=== PATIENT | female | born 1950 | race Caucasian/White ===

== ENCOUNTER 2021-05-27 00:44 | Inpatient (IN) | payer MEDICARE, OTHER ==
[2021-05-27] VITALS (7 sets, daily range): BP systolic 100–130; BP diastolic 49–85
[~2021-05-27] VITALS: Ht 157.5 cm; Wt 76.0 kg
[2021-05-27] MEDS ORDERED: POLY2500 PO (01:22)
[2021-05-27] MEDS ORDERED: ESCITALOPRAM OX20 MG PO (01:22)
[2021-05-27] MEDS ORDERED: MAGN400T48 PO (01:22)
[2021-05-27] MEDS ORDERED: CARV12.511 PO (01:22)
[2021-05-27] MEDS ORDERED: MELA5TAB20 PO (01:22)
[2021-05-27] MEDS ORDERED: DILT180C29 PO (01:22)
[2021-05-27] MEDS ORDERED: ATOR40TA59 PO (01:22)
[2021-05-27] MEDS ORDERED: LEVO75TA5 PO (01:22)
[2021-05-27] MEDS ORDERED: MULT-245 PO (01:22)
[2021-05-27] MEDS ORDERED: BISA-42 PO (01:22)
[2021-05-27] MEDS ORDERED: DIVA-51 PO (01:22)
[2021-05-27] MEDS ORDERED: LORA0.5T96 PO (01:22)
[2021-05-27] MEDS ORDERED: ONDANSETRON PF 4 MG/2 ML VIAL. IVP PRN (01:45)
[2021-05-27] MEDS ORDERED: APIX5TAB PO (02:13)
[2021-05-27] MEDS: IV NORMAL SALINE 1000ML BAG 1,000 ML IV SCH ×3 (04:06→20:40)
[2021-05-27 06:47] LABS: ALBUMIN/GLOBULIN RATIO 0.9 (1.0-1.7); CALCIUM 8.6 mg/dL (8.5-10.1); CREATININE 1.3 mg/dL (0.6-1.0); GFR 40.3; POTASSIUM 4.3 mmol/L (3.5-5.1); TOTAL BILIRUBIN 0.8 mg/dL (0.2-1.0); TOTAL PROTEIN 6.4 g/dL (6.4-8.2)
[2021-05-27 06:58] LABS: BASO % 0 % (0-3); EOS % 0 % (0-3); HEMATOCRIT 37.5 % (36.0-47.0); LYMPH # 1.1 x10^3/uL (1.0-4.8); LYMPH % 14 % (24-48); MEAN CORPUSCULAR HEMOGLOBIN 30 pg (25-35); MEAN CORPUSCULAR HGB CONC 32 g/dL (31-37); MEAN CORPUSCULAR VOLUME 93 fL (79-100); MONO # 0.7 x10^3/uL (0.0-1.1); MONO % 8 % (0-9); NEUT # 6.6 x10^3/uL (1.8-7.7); NEUT % 78 % (31-73); PLATELET COUNT 189 x10^3/uL (140-400); RED BLOOD COUNT 4.02 x10^6/uL (3.50-5.40); RED CELL DISTRIBUTION WIDTH 15.2 % (11.5-14.5); WHITE BLOOD COUNT 8.4 x10^3/uL (4.0-11.0)
[2021-05-27 09:04] LABS: PROTHROMBIN TIME PATIENT 19.9 SEC (11.7-14.0)
[2021-05-27] MEDS ORDERED: BISACODYL 5 MG TABLET.DR. PO PRN (11:45)
[2021-05-27] MEDS: CITALOPRAM 20 MG TABLET. PO SCH (12:00)
[2021-05-27] MEDS: MULTIVITAMIN with MINERAL TABLET. PO SCH (12:00)
[2021-05-27] MEDS: MAGNESIUM OXIDE 400 MG TABLET PO SCH ×2 (12:00→20:14)
[2021-05-27] MEDS: POLYETHYLENE GLYCOL 3350 17 GM PACKET. PO SCH (12:00)
[2021-05-27] MEDS: DIVALPROEX DELAYED RELEASE 250 MG TABLET.DR. PO SCH ×2 (13:14→20:14)
[2021-05-27] MEDS: LEVOTHYROXINE 75 MCG TABLET PO SCH (13:14)
[2021-05-27] MEDS: CARVEDILOL 12.5 MG TABLET. PO SCH ×2 (13:14→16:26)
[2021-05-27 13:29] LABS: HEMATOCRIT 37.6 % (36.0-47.0); HEMOGLOBIN 12.2 g/dL (12.0-15.5); RED BLOOD COUNT 4.01 x10^6/uL (3.50-5.40); RED CELL DISTRIBUTION WIDTH 15.5 % (11.5-14.5); WHITE BLOOD COUNT 8.8 x10^3/uL (4.0-11.0)
[2021-05-27 13:43] LABS: CALCIUM 8.9 mg/dL (8.5-10.1); CREATININE 1.2 mg/dL (0.6-1.0); GFR 44.2; POTASSIUM 4.7 mmol/L (3.5-5.1)
--- NOTE | 2021-05-27 14:46 | HP ---
DATE OF SERVICE: 05/27/2021 ADMIT DATE: 05/27/2021 HISTORY OF PRESENT ILLNESS: The patient is a 70-year-old female patient, [facility] who [facility] on account of worsening dementia with aggressive behavior, refusing medication and hallucinating. She apparently had failed outpatient psychiatric intervention. Her behaviors were unmanageable and dangerous and resulting in the referral to [facility] at [facility]. She apparently fell with resultant right hip fracture and therefore, she was transferred to [facility] for definitive surgical treatment. She was evaluated by the orthopedic surgeon and as she was on Eliquis, he recommended postponement of the surgery until Sunday or Sunday. The patient herself is very demented and does not give any useful information. PAST MEDICAL HISTORY: Significant for hypertension, type 2 diabetes mellitus, coronary artery disease, cerebrovascular accident, atrial fibrillation, chronic kidney disease and aphasia. Does have also history of cerebral aneurysm. PAST SURGICAL HISTORY: Unremarkable. ALLERGIES: SHE IS ALLERGIC TO MORPHINE, CODEINE, MEPERIDINE, AND LEVOFLOXACIN. FAMILY HISTORY: Noncontributory. SOCIAL HISTORY: [facility]. 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 She does not smoke, drink alcohol or use recreational drugs. MEDICATIONS: She is currently on the following medications: She is on atorvastatin calcium 40 mg at bedtime, carvedilol 12.5 mg twice a day, diltiazem 180 mg once a day, divalproex sodium 250 mg twice a day, escitalopram oxalate 20 mg at bedtime, lorazepam 0.5 mg every 6 hours, magnesium oxide 400 mg twice a day, bisacodyl tablet 5 mg once a day as needed, MiraLax 17 grams at bedtime, levothyroxine sodium 75 mcg once a day, multivitamin 1 tablet once a day, and melatonin 5 mg once a day at bedtime. REVIEW OF SYSTEMS: Unobtainable. The patient is very confused and does not give any useful information. On arrival to the Emergency Room of [facility], she looked well and was clearly in no apparent respiratory distress. She was pale, but not jaundiced or cyanosed. No thyromegaly. No jugular venous distention. No limb edema. Her heart rate was 115, blood pressure was 100/53, temperature was 97.5, respiratory rate was 14, and oxygen saturation was 99% on 2 liters of oxygen. Examination of the head, eyes, ears, nose, and throat, Normocephalic, atraumatic. Neck was supple. Heart showed normal first and second heart sounds. No gallop, rub or murmur. Chest was clear to auscultation, no crepitation or rhonchi. Abdomen was soft, nontender. No guarding or rigidity. No organomegaly. All hernial orifice intact. Bowel sounds normal. Neurologically, she was demented without any obvious lateralizing sign. Her lab work in the Emergency Room showed a white cell count of 10,800, hemoglobin 12.6, hematocrit 39, MCV 97, and platelet count of 214,000 with a manual differential showed 79% polymorphs, 14% lymphocytes and 7% monocytes. Her chemistry showed a serum sodium 136, potassium 4.1, chloride 106, bicarbonate 22, anion gap of 8, BUN 23, creatinine 1.4, estimated GFR was 37 mL per minute, her glucose 146, calcium was 8.3, magnesium was 1.9. Total bilirubin, AST, ALT, alkaline phosphatase were normal. Her CK was 316. Beta natriuretic peptide was 4,952, total protein 6.1, albumin was 2.9. Her total T4 was 6.8, total T4 was slightly low at 56. Her D-dimer was high at 11.71. Urinalysis essentially unremarkable and toxic screen was essentially negative. In the Emergency Room, she has a CT scan of the head and cervical spine, which showed that the patient has no acute intracranial abnormality. She has negative CT scan of the cervical spine for acute traumatic injury. Her chest x-ray showed hazy right airspace disease, may relate to a symptomatic edema or atypical infectious process. Followup imaging to ensure resolution is recommended. CT scan of the head and pelvis showed that there is acute traumatic mildly comminuted fracture of the intertrochanteric right femur, distal fracture fragment is slightly medially displaced, fracture fragment of the lesser trochanter is slightly medially displaced. There is no hip dislocation. There is arthropathy of both hip joints. No acute pelvic fracture is seen. There is mild left convexity lumbar scoliosis and there is degenerative spondylosis, mild air and stool in the rectum. The patient was therefore transferred to [facility] for definitive surgical treatment. The patient was kept n.p.o., started on IV fluid and IV medications in the form of fentanyl as the patient has MULTIPLE ALLERGIES TO MORPHINE AND OTHER MEDICATIONS. When I saw her in [facility], the patient was resting slightly propped up in bed, in no apparent respiratory distress. She was awake, alert, but confused. PHYSICAL EXAMINATION: GENERAL: When I examined her, she was pale, not jaundiced or cyanosed. No thyromegaly. No jugular venous distention. No limb edema. VITAL SIGNS: Her heart rate was 102, blood pressure was 114/80, temperature was 98, respiratory rate was 17, and oxygen saturation was 99% on 2 liters of oxygen. HEAD, EYES, EARS, NOSE, AND THROAT: Showed she is normocephalic, atraumatic. NECK: Supple. HEART: Showed normal first and second heart sounds. No gallop or murmur. CHEST: Clear to auscultation, no crepitation or rhonchi. ABDOMEN: Distended, soft, nontender. NEUROLOGIC: She is demented without any obvious lateralizing sign. She is able to move upper extremities without difficulty. Her right lower extremity is externally rotated. There is marked soft tissue swelling around her right hip joint, likely due to bleeding. LABORATORY DATA: Her white cell count was 8400, hemoglobin 12, hematocrit 37, MCV 93, and platelet count of 189,000 with normal manual differential. Her chemistry showed a serum sodium 140, potassium 4.3, chloride 105, bicarbonate 22, anion gap of 13, BUN 26, creatinine 1.3, estimated GFR was 40 mL per minute, her glucose 138, calcium was 8.6. Total bilirubin, AST, ALT, alkaline phosphatase were normal. Total protein 6.4, albumin 3. Her prothrombin time was 19.9, INR 1.7. PLAN: As she has an indwelling Weaver catheter, we will obviously hold her apixaban and as there is no planned surgery, so we will continue all her medications as well as we will monitor her H and H closely and transfuse as needed. She probably has bled around her fracture. STEFANI/LEYLA/CODY DR: Salvador TID: [id number]
[2021-05-27] MEDS: ATORVASTATIN CALCIUM 40 MG TABLET. PO SCH (20:14)
--- NOTE | 2021-05-27 20:25 | CONS ---
DATE OF CONSULTATION: 05/27/2021 REASON FOR EVALUATION: Right hip pain and consultation. HISTORY OF PRESENT ILLNESS: The patient is a 70-year-old female who is a poor historian; however, I understand that she sustained a fall yesterday evening. After that fall, she is unable to ambulate, was having significant issues of pain control; therefore, was brought to the Emergency Department initially at [facility] and then transferred over to [facility] after the diagnosis. Thankfully, no other injuries occurred. Past medical and surgical history, medications, allergies, review of systems are all reviewed and are available on the chart today. PHYSICAL EXAMINATION: Reveals a very shortened and externally rotated right lower extremity. There is some swelling to this area as well. No significant ecchymosis is noted at this point, but no pain along the area of the knee or ankle or foot, but any type of rotation or movement of that right leg causes severe significant pain to the right hip. Therefore, this is slightly limited. Distal neurovascular status appears intact. IMAGING: X-rays reveal comminuted intertrochanteric fracture of the right hip. PLAN: At this time, we will try to discuss with her [id number], her son, Robert the diagnosis as well as the treatment plan for her since she is on an anticoagulant that cannot be reversed. This will have to wait until this is appropriate, so we do not have excessive amount of loss of blood. I will make her son well aware of the risks, complications as well as benefits and expectations of surgery, postoperative protocol and followup. We will proceed as soon as Anesthesia also clears this patient in addition to her call taker. TAMMIE DR: Gab TID: [id number]
[2021-05-27] MEDS ORDERED: NON FORMULARY ITEM (Melatonin 1 TAB) PO SCH (21:00)
[2021-05-28 03:00] VITALS: BP 105/77
[2021-05-28] MEDS: LEVOTHYROXINE 75 MCG TABLET PO SCH (05:40)
[2021-05-28] MEDS: IV NORMAL SALINE 1000ML BAG 1,000 ML IV SCH ×2 (05:59→16:21)
[2021-05-28 07:00] VITALS: BP 144/79
[2021-05-28] MEDS: POLYETHYLENE GLYCOL 3350 17 GM PACKET. PO SCH (08:43)
[2021-05-28] MEDS: MAGNESIUM OXIDE 400 MG TABLET PO SCH ×2 (08:44→21:59)
[2021-05-28] MEDS: MULTIVITAMIN with MINERAL TABLET. PO SCH (08:44)
[2021-05-28] MEDS: DIVALPROEX DELAYED RELEASE 250 MG TABLET.DR. PO SCH ×2 (08:46→21:59)
[2021-05-28] MEDS: CITALOPRAM 20 MG TABLET. PO SCH (08:46)
[2021-05-28] MEDS: CARVEDILOL 12.5 MG TABLET. PO SCH ×2 (08:47→17:00)
[2021-05-28] MEDS: fentaNYL PF VIAL 100 MCG/2 ML VIAL IVP PRN ×3 (08:49→18:18)
[2021-05-28 08:53] LABS: HEMOGLOBIN 11.5 g/dL (12.0-15.5); RED BLOOD COUNT 3.76 x10^6/uL (3.50-5.40); RED CELL DISTRIBUTION WIDTH 15.2 % (11.5-14.5); WHITE BLOOD COUNT 8.1 x10^3/uL (4.0-11.0)
[2021-05-28 09:40] LABS: ALBUMIN 2.9 g/dL (3.4-5.0); ALBUMIN/GLOBULIN RATIO 0.9 (1.0-1.7); CALCIUM 8.7 mg/dL (8.5-10.1); CREATININE 0.7 mg/dL (0.6-1.0); GFR 82.3; POTASSIUM 4.4 mmol/L (3.5-5.1); TOTAL BILIRUBIN 0.6 mg/dL (0.2-1.0); TOTAL PROTEIN 6.2 g/dL (6.4-8.2)
[2021-05-28 11:00] VITALS: BP 107/56
--- NOTE | 2021-05-28 11:33 | PN ---
DATE: 05/28/2021 SUBJECTIVE: The patient is resting, slightly propped up in bed, in no apparent distress, sleepy, but arousable. On questioning her, denied any complaint. Nursing staff did not voice any concerns that she has generally uneventful night. PHYSICAL EXAMINATION: GENERAL: When I examined her, there was no pallor, jaundice, cyanosis or thyromegaly. No jugular venous distention. No limb edema. VITAL SIGNS: Her heart rate was 84, blood pressure was 144/79, temperature was 97.9, respiratory rate was 17, and her oxygen saturation was 95% on 2 liters of oxygen. HEAD, EYES, EARS, NOSE, AND THROAT: Normocephalic, atraumatic. NECK: Supple. HEART: Showed normal first and second heart sounds. No gallop or murmur. CHEST: Clear to auscultation, no crepitation or rhonchi. ABDOMEN: Distended, soft, nontender. NEUROLOGIC: She is demented without any obvious lateralizing sign. She moves both upper extremities and left lower extremity without difficulty. Her intake and output are incompletely recorded. LABORATORY DATA: As of yesterday showed a serum sodium 140, potassium 4.7, chloride 105, bicarbonate 23, anion gap of 12, BUN 28, creatinine is 1.2, estimated GFR was 44 mL per minute, her glucose 133, calcium was 8.9. Her white cell count was 8100, hemoglobin 11.5, hematocrit 35, MCV 93, and platelet count of 182,000. ASSESSMENT: 1. This is a 70-year-old female patient who apparently fell at [facility] sustaining right intertrochanteric hip fracture. 2. The patient has multiple other medical problems including: A. Hypertension. B. Type 2 diabetes mellitus. C. Coronary artery disease. D. Cerebrovascular accident. E. Atrial fibrillation. E. Chronic kidney disease. F. Aphasia. She was actually on apixaban that was discontinued and according to the orthopedic surgeon, he is planning for surgery either tomorrow or Sunday. STEFANI/LEYLA DR: Salvador TID: [id number]
--- NOTE | 2021-05-28 12:08 | PN ---
DATE: 05/28/2021 She is here today for evaluation. No significant acute changes at this point. I did talk with Anesthesia yesterday and she has been under the treatment with Eliquis and unfortunately we will have to wait a few days for that to equilibrate. I have talked with Anesthesia about this and they would recommend Sunday to be doing that surgery, which will be a gamma nail fixation. We will proceed as soon as she is medically stable. RYAN DR: Gab TID: [id number]
[2021-05-28 15:00] VITALS: BP 107/60
[2021-05-28 19:00] VITALS: BP 103/57
[2021-05-28] MEDS: ATORVASTATIN CALCIUM 40 MG TABLET. PO SCH (21:59)
[2021-05-28 23:00] VITALS: BP 126/74
[2021-05-29] MEDS: IV NORMAL SALINE 1000ML BAG 1,000 ML IV SCH ×3 (02:40→22:05)
[2021-05-29 03:15] VITALS: BP 134/66
[2021-05-29] MEDS: fentaNYL PF VIAL 100 MCG/2 ML VIAL IVP PRN ×3 (05:14→17:14)
[2021-05-29] MEDS: LEVOTHYROXINE 75 MCG TABLET PO SCH (05:14)
[2021-05-29 07:00] VITALS: BP 130/76
[2021-05-29] MEDS: POLYETHYLENE GLYCOL 3350 17 GM PACKET. PO SCH (08:37)
[2021-05-29] MEDS: CARVEDILOL 12.5 MG TABLET. PO SCH ×3 (08:38→18:10)
[2021-05-29] MEDS: MULTIVITAMIN with MINERAL TABLET. PO SCH (08:38)
[2021-05-29] MEDS: CITALOPRAM 20 MG TABLET. PO SCH (08:38)
[2021-05-29] MEDS: DIVALPROEX DELAYED RELEASE 250 MG TABLET.DR. PO SCH ×2 (08:38→21:56)
[2021-05-29] MEDS: MAGNESIUM OXIDE 400 MG TABLET PO SCH ×2 (08:41→21:56)
[2021-05-29 11:00] VITALS: BP 110/72
[2021-05-29 11:11] LABS: HEMATOCRIT 33.2 % (36.0-47.0); HEMOGLOBIN 10.8 g/dL (12.0-15.5); RED BLOOD COUNT 3.55 x10^6/uL (3.50-5.40); RED CELL DISTRIBUTION WIDTH 15.3 % (11.5-14.5); WHITE BLOOD COUNT 7.5 x10^3/uL (4.0-11.0)
[2021-05-29 11:25] LABS: CALCIUM 8.5 mg/dL (8.5-10.1); CREATININE 0.7 mg/dL (0.6-1.0); GFR 82.3; POTASSIUM 3.6 mmol/L (3.5-5.1)
--- NOTE | 2021-05-29 12:45 | PN ---
DATE: 05/29/2021 SUBJECTIVE: The patient is resting, slightly propped up in bed, in no apparent respiratory distress. She is demented and does not really give any useful information. Nursing staff did not voice any concerns that she had an uneventful night. PHYSICAL EXAMINATION: GENERAL: When I examined her, she looked well and was clearly in no apparent respiratory distress. No pallor, jaundice, cyanosis or thyromegaly. No jugular venous distention. Does have markedly swollen right lower extremity compared to the left. VITAL SIGNS: Her heart rate was 79, blood pressure was 134/66, temperature 97.9, respiratory rate 20, and oxygen saturation was 93% on 2 liters of oxygen. HEAD, EYES, EARS, NOSE, AND THROAT: She is normocephalic, atraumatic. NECK: Supple. HEART: Showed normal first and second heart sounds. No gallop, rub or murmur. CHEST: Clear to auscultation, no crepitation or rhonchi. ABDOMEN: Distended, soft, nontender. NEUROLOGIC: She was demented, but without any obvious lateralizing sign. Her right lower extremity is short and externally rotated. Her intake over the last 24 hours was 3000, output was 500. LABORATORY DATA: Her most recent lab work showed a hemoglobin 11.5, hematocrit 35 with normal white cell count and platelets. Her chemistry showed her BUN was 24, creatinine 0.7. ASSESSMENT: 1. This is a 70-year-old female patient who apparently fell at the [facility] in [facility], sustaining right intertrochanteric hip fracture. The patient was on Eliquis and therefore, the procedure was postponed until Sunday. 2. The patient has multiple other medical problems including: A. Hypertension. B. Type 2 diabetes mellitus. C. Coronary artery disease. D. Cerebrovascular accident. E. Atrial fibrillation, rate controlled. F. Chronic kidney disease. G. Aphasia. PLAN: To continue holding the apixaban. I will repeat all her lab works as she is scheduled for surgery tomorrow. JUAN M DR: Salvador TID: [id number]
[2021-05-29 15:00] VITALS: BP 113/78
[2021-05-29 19:00] VITALS: BP 107/39
[2021-05-29] MEDS: LORazepam 0.5 MG TABLET PO PRN (21:56)
[2021-05-29] MEDS: ATORVASTATIN CALCIUM 40 MG TABLET. PO SCH (21:56)
[2021-05-29 23:00] VITALS: BP 125/65
[2021-05-30 03:02] VITALS: BP 121/53
[2021-05-30] MEDS: LEVOTHYROXINE 75 MCG TABLET PO SCH (04:33)
[2021-05-30 06:31] LABS: HEMATOCRIT 30.2 % (36.0-47.0); HEMOGLOBIN 9.8 g/dL (12.0-15.5); RED BLOOD COUNT 3.2 x10^6/uL (3.50-5.40); RED CELL DISTRIBUTION WIDTH 15.1 % (11.5-14.5); WHITE BLOOD COUNT 8.3 x10^3/uL (4.0-11.0)
[2021-05-30 06:54] LABS: ALBUMIN 2.3 g/dL (3.4-5.0); ALBUMIN/GLOBULIN RATIO 0.7 (1.0-1.7); CALCIUM 8.4 mg/dL (8.5-10.1); CREATININE 0.7 mg/dL (0.6-1.0); GFR 82.3; POTASSIUM 3.4 mmol/L (3.5-5.1); TOTAL BILIRUBIN 0.6 mg/dL (0.2-1.0); TOTAL PROTEIN 5.8 g/dL (6.4-8.2)
[2021-05-30 07:00] VITALS: BP 131/84
[2021-05-30] MEDS: CARVEDILOL 12.5 MG TABLET. PO SCH ×2 (07:09→16:33)
[2021-05-30] MEDS: IV NORMAL SALINE 1000ML BAG 1,000 ML IV SCH ×2 (07:52→16:34)
[2021-05-30] MEDS: POLYETHYLENE GLYCOL 3350 17 GM PACKET. PO SCH (07:53)
[2021-05-30] MEDS: CITALOPRAM 20 MG TABLET. PO SCH (07:53)
[2021-05-30] MEDS: MULTIVITAMIN with MINERAL TABLET. PO SCH (07:53)
[2021-05-30] MEDS: MAGNESIUM OXIDE 400 MG TABLET PO SCH ×2 (07:53→20:33)
[2021-05-30] MEDS: DIVALPROEX DELAYED RELEASE 250 MG TABLET.DR. PO SCH ×2 (07:53→20:33)
[2021-05-30] MEDS ORDERED: LIDOCAINE 2% PF 5 ML VIAL. ONE (09:11)
[2021-05-30] MEDS ORDERED: GLYCOPYRROLATE 1 MG/5 ML VIAL. ONE (09:11)
[2021-05-30] MEDS ORDERED: PROPOFOL 10 MG/ML (20ML) VIAL. IV ONE (09:11)
[2021-05-30] MEDS ORDERED: DEXAMETHASONE SOD PHOS 4 MG/ML VIAL ONE (09:11)
[2021-05-30] MEDS ORDERED: ONDANSETRON PF 4 MG/2 ML VIAL. ONE (09:11)
[2021-05-30] MEDS ORDERED: ROCURONIUM 50 MG/5 ML VIAL. ONE (09:13)
[2021-05-30] MEDS ORDERED: SUGAMMADEX SODIUM 200 MG/2 ML VIAL. IVP ONE ×2 (09:15→10:29)
[2021-05-30] MEDS ORDERED: MIDAZOLAM HCL/PF 2 MG/2 ML VIAL. ONE (09:17)
[2021-05-30] MEDS ORDERED: PHENYLEPHRINE in 0.9% NACL PF 1 MG/10 ML SYRINGE. IV ONE (09:20)
[2021-05-30] MEDS ORDERED: PROPOFOL 50 ML IV ONE (09:35)
[2021-05-30] MEDS ORDERED: 0.9 % SODIUM CHLORIDE 20 ML VIAL. IJ ONE ×3 (09:38)
[2021-05-30] MEDS ORDERED: DEXMEDETOMIDINE 200 MCG/2 ML VIAL. IV ONE (09:45)
[2021-05-30] MEDS ORDERED: IV RINGERS,LACTATED 1000ML 1,000 ML IV SCH (09:45)
[2021-05-30] MEDS ORDERED: HYDROmorphone 2 MG/ML INJ. IVP PRN (09:45)
[2021-05-30] MEDS ORDERED: PROCHLORPERAZINE 10 MG/2 ML VIAL. IVP PRN (09:45)
[2021-05-30] MEDS ORDERED: MORPHINE SULFATE 2 MG/ML INJ. IVP PRN ×2 (09:45→12:15)
[2021-05-30] MEDS ORDERED: fentaNYL PF VIAL 100 MCG/2 ML VIAL IVP PRN ×3 (09:45→12:15)
[2021-05-30] MEDS ORDERED: PHENYLEPHRINE 10 MG/ML VIAL. ONE (09:46)
[2021-05-30] MEDS ORDERED: fentaNYL PF VIAL 100 MCG/2 ML VIAL ONE (10:40)
[2021-05-30] MEDS ORDERED: VASOPRESSIN 20 UNIT/ML VIAL. ONE (11:19)
--- NOTE | 2021-05-30 12:02 | PDOC4 ---
OPERATIVE NOTE Date: Date: May 30, 2021 Pre-Op Diagnosis: Comminuted intertrochanteric fracture right hip Post-Op Diagnosis: Same Procedure Performed: Open reduction internal fixation right intertrochanteric fracture hip gamma nail fixation Surgeon: Reinier Anesthesia Type: General Blood Loss: 200 cc Specimans Obtained: None Findings: See dictation Complications: None JUANITA DUQUE Jr., DO May 30, 2021 12:02
[2021-05-30] MEDS ORDERED: oxyCODONE IR 5 MG TABLET PO PRN (12:15)
[2021-05-30] MEDS ORDERED: HYDROcodone/APAP 7.5/325MG 1 TAB TABLET PO PRN ×2 (12:15)
[2021-05-30] MEDS ORDERED: ONDANSETRON PF 4 MG/2 ML VIAL. IVP PRN (12:15)
[2021-05-30] MEDS ORDERED: IV DEXTROSE 5% 250 ML BAG. IV PRN (12:15)
[2021-05-30] MEDS ORDERED: DEXTROSE 50% 25 GM / 50ML DISP.SYRIN. IV PRN (12:15)
[2021-05-30] MEDS ORDERED: POLYETHYLENE GLYCOL 3350 17 GM PACKET. PO PRN (12:15)
--- NOTE | 2021-05-30 12:32 | OP ---
DATE OF SURGERY: 05/30/2021 PREOPERATIVE DIAGNOSIS: Comminuted intertrochanteric fracture of right hip. POSTOPERATIVE DIAGNOSIS: Comminuted intertrochanteric fracture of right hip. PROCEDURE: Open reduction and internal fixation with gamma nail fixation, right hip. SURGEON: Alexei Hills Jr., DO CLINICAL EXERCISE SPECIALIST: Noman Jack. ANESTHESIA: General. COMPLICATIONS: None. ESTIMATED BLOOD LOSS: 200 mL. DESCRIPTION OF PROCEDURE: The patient was taken to the operative suite, given a general anesthetic, placed on a fracture table. The right hip was then closed reduced to the best position as possible. The right lower extremity was then prepped and draped in a sterile fashion. Incision was made through skin and subcutaneous tissues down to the area of the iliotibial band, which was split in line with the skin incision. The greater trochanteric region was palpated and then the pin was placed for entry into the femoral canal from that area. This was noted to be difficult due to the comminuted nature of the fracture, but after attempts, this was placed in through the greater trochanter into the intramedullary portion of the femur noted to be in good position of both AP and lateral projections. This was triple reamed down to the lesser trochanteric region and then this was all removed. The guidewire was placed down the femur, noted to be in good position and orientation. Reaming began at size 11, 12 and subsequently 13 mm reamings down to the area past the isthmus. The guide pin was left in place and then the appropriate long gamma nail was then placed past the greater trochanteric region into the distal portion of the femur in good position in both AP and lateral projections. Another incision was made through skin and subcutaneous tissues and iliotibial band down to the lateral aspect of the femur and 130-degree angle guide was then placed along the lateral femur. The pin was then placed in appropriate position within the neck and head and this was again in AP and lateral projections. This was measured and a 90 mm screw was most appropriate. Therefore, this was reamed to the appropriate area and removed and the screw was placed with good fixation into the femoral neck and femoral head. This was then locked from proximal with the locking screw. Noted to be very stable and locked completely. This outrigger was then subsequently removed at this point. No IM guides were still present obviously, but everything was removed from that area. The distal locking screw was then done. This was in static mode. After the circles were noted to be perfect in the lateral, this was drilled and measured. A 32.5 mm screw was then placed to lock the distal aspect of the femur. This was noted to be locked completely at this point. The wounds were then thoroughly irrigated. Deep tissues reapproximated. Superficial tissue and skin was reapproximated. Sterile dressing was applied. The patient was then taken from the operative bed to the postoperative bed, taken to the PACU in stable condition. KALE DR: Gab TID: [id number]
[2021-05-30 15:00] VITALS: BP 100/64
[2021-05-30 19:00] VITALS: BP 79/55
[2021-05-30] MEDS: ATORVASTATIN CALCIUM 40 MG TABLET. PO SCH (20:33)
[2021-05-30] MEDS: LORazepam 0.5 MG TABLET PO PRN (20:33)
--- NOTE | 2021-05-30 20:48 | PN ---
DATE: 05/30/2021 SUBJECTIVE: The patient has had her open reduction and internal fixation with gamma nail fixation of right hip. She is demented and does not really give any useful information. PHYSICAL EXAMINATION: GENERAL: On examining her, she was pale, but no jaundice, cyanosis or thyromegaly. No jugular venous distention. No limb edema. VITAL SIGNS: Her heart rate was 110, blood pressure was 95/57, temperature was 98.1, respiratory rate was 20 and oxygen saturation was 98% on 2 liters of oxygen. Rest of clinical exam stable. LABORATORY DATA: Her lab work this morning showed a serum sodium 139, potassium 3.4, chloride 106, bicarbonate 25, anion gap of 8, BUN 13, creatinine 0.7. Estimated GFR was 82 mL per minute. Her glucose 132, calcium was 8.4. Total bilirubin, AST, ALT, alkaline phosphatase were normal. Total protein 5.8, albumin 2.3. Her white cell count was 8300, hemoglobin 10, hematocrit 30, MCV 95 and platelet count 200,000. ASSESSMENT: 1. This is a 70-year-old female patient who apparently fell at the [facility] at [facility], sustaining a right intertrochanteric hip fracture. She was on Eliquis and therefore, the surgical intervention was postponed until today and she underwent open reduction and internal fixation of her right intertrochanteric fracture successfully. 2. The patient has multiple other medical problems including: A. Hypertension. B. Type 2 diabetes mellitus. C. Coronary artery disease. D. Cerebrovascular accident. E. Atrial fibrillation, rate controlled. F. Chronic kidney disease. G. Aphasia. PLAN: My plan is obviously to continue holding her apixaban. We will continue with all her medications. We will order physical and occupational therapy and consult the social media assistant for placement. STEFANI/VERONICA/KELECHI DR: Salvador TID: [id number]
[2021-05-30] MEDS: MORPHINE SULFATE 4 MG/ML INJ. IVP PRN (21:18)
[2021-05-30 23:00] VITALS: BP 98/62
[2021-05-31 03:00] VITALS: BP 105/69
[2021-05-31] MEDS: IV NORMAL SALINE 1000ML BAG 1,000 ML IV SCH ×2 (04:25→12:02)
[2021-05-31] MEDS: LEVOTHYROXINE 75 MCG TABLET PO SCH (04:37)
[2021-05-31] MEDS ORDERED: MAGNESIUM HYDROXIDE 2,400 MG/30 ML ORAL.SUSP. PO PRN (06:00)
[2021-05-31 07:00] VITALS: BP 113/71
[2021-05-31 07:43] LABS: HEMATOCRIT 29.3 % (36.0-47.0); HEMOGLOBIN 9.7 g/dL (12.0-15.5); RED BLOOD COUNT 3.1 x10^6/uL (3.50-5.40); RED CELL DISTRIBUTION WIDTH 15.2 % (11.5-14.5); WHITE BLOOD COUNT 11.5 x10^3/uL (4.0-11.0)
[2021-05-31] MEDS: POLYETHYLENE GLYCOL 3350 17 GM PACKET. PO SCH (07:54)
[2021-05-31] MEDS: DIVALPROEX DELAYED RELEASE 250 MG TABLET.DR. PO SCH ×2 (07:56→20:11)
[2021-05-31] MEDS: MAGNESIUM OXIDE 400 MG TABLET PO SCH ×2 (07:56→20:11)
[2021-05-31] MEDS: ASPIRIN 325 MG TABLET PO SCH (07:57)
[2021-05-31] MEDS: MULTIVITAMIN with MINERAL TABLET. PO SCH (07:57)
[2021-05-31] MEDS: SENNOSIDES/DOCUSATE 8.6/50MG TABLET. PO SCH (07:57)
[2021-05-31] MEDS: CITALOPRAM 20 MG TABLET. PO SCH (07:58)
[2021-05-31 08:11] LABS: CALCIUM 8.5 mg/dL (8.5-10.1); CREATININE 0.8 mg/dL (0.6-1.0); GFR 70.5; POTASSIUM 3.7 mmol/L (3.5-5.1)
[2021-05-31] MEDS ORDERED: MULTIVITAMIN with MINERAL TABLET. PO SCH (09:00)
[2021-05-31 11:00] VITALS: BP 103/59
[2021-05-31] MEDS: CARVEDILOL 12.5 MG TABLET. PO SCH ×2 (11:00→17:00)
--- NOTE | 2021-05-31 14:09 | PN ---
DATE: 05/31/2021 She is postoperative day #1 for ORIF of the gamma nail fixation of her right hip fracture. She is very comfortable at this point. No significant pain. There is no excessive bleeding from the wound sites at this point. There is no excessive swelling to the lower extremity or thigh region. The distal neurovascular status appears to be fully intact at this point with no significant findings. We can begin some physical and occupational therapy as tolerated. Her hemoglobin is 9.7 with her hematocrit of 29.3, slightly elevated white count secondary to the trauma from the surgery at this point more than likely. We will watch her very closely. Orthopedically, she appears stabilized at this point. RYAN DR: Gab TID: [id number]
[2021-05-31 15:00] VITALS: BP 95/62
[2021-05-31] MEDS ORDERED: BISACODYL 10 MG SUPP.RECT. PR PRN (16:00)
--- NOTE | 2021-05-31 17:12 | PN ---
DATE: 05/31/2021 SUBJECTIVE: The patient is resting, slightly propped up in bed, in no apparent distress. She is extremely demented, nonverbal. Nursing staff stated that they actually fed her and she will be evaluated by physical and occupational therapy. She apparently is toe touch weightbearing on her right lower extremity. PHYSICAL EXAMINATION: GENERAL: When I examined her, she was pale, not jaundiced, cyanosed. No thyromegaly. No jugular venous distention. No limb edema. VITAL SIGNS: Her heart rate was 64, blood pressure was 113/71, temperature 97.9, respiratory rate was 17 and oxygen saturation was 100% on 2 liters of oxygen. HEAD, EYES, EARS, NOSE, AND THROAT: Normocephalic, atraumatic. NECK: Supple. HEART: Showed normal first and second heart sounds. No gallop, rub or murmur. CHEST: Clear to auscultation, no crepitation or rhonchi. ABDOMEN: Scaphoid, soft, nontender. NEUROLOGIC: She was demented, but without any obvious lateralizing sign. Her intake was 1000, output was 650. LABORATORY DATA: As of this morning, her white cell count was 11,500, hemoglobin 10, hematocrit 30, MCV 95 and platelet count 230,000. Serum sodium was 141, potassium 3.7, chloride 108, bicarbonate 25, anion gap of 8, BUN 17, creatinine 0.8. Estimated GFR was 70 mL per minute. Her glucose 149 and calcium was 8.5. ASSESSMENT: 1. This is a 70-year-old female patient who apparently fell at the [facility] at [facility], sustaining a right intertrochanteric hip fracture. She was on Eliquis and therefore, the surgical intervention was postponed until yesterday. 2. She underwent open reduction and internal fixation of her right intertrochanteric fracture successfully. 3. The patient has multiple other medical problems including: A. Hypertension. B. Type 2 diabetes mellitus. C. Coronary artery disease. D. Cerebrovascular accident. E. Atrial fibrillation, rate controlled. F. Chronic kidney disease. G. Aphasia. H. Profound dementia. PLAN: To obviously to start physical and occupational therapy. We will discuss with the director of social work to start the process of placement. ALISON/CODY DR: Salvador TID: [id number]
[2021-05-31 19:00] VITALS: BP 100/54
[2021-05-31] MEDS: ATORVASTATIN CALCIUM 40 MG TABLET. PO SCH (20:11)
[2021-05-31] MEDS: MORPHINE SULFATE 4 MG/ML INJ. IVP PRN (20:11)
[2021-05-31 23:00] VITALS: BP 100/54
[2021-06-01] MEDS: IV NORMAL SALINE 1000ML BAG 1,000 ML IV SCH ×2 (00:18→15:54)
[2021-06-01 03:13] VITALS: BP 100/58
[2021-06-01] MEDS: LEVOTHYROXINE 75 MCG TABLET PO SCH (05:21)
[2021-06-01 07:00] VITALS: BP 107/61
[2021-06-01] MEDS: ASPIRIN 325 MG TABLET PO SCH (08:20)
[2021-06-01] MEDS: MULTIVITAMIN with MINERAL TABLET. PO SCH (08:20)
[2021-06-01] MEDS: MAGNESIUM OXIDE 400 MG TABLET PO SCH ×2 (08:20→22:37)
[2021-06-01] MEDS: CITALOPRAM 20 MG TABLET. PO SCH (08:21)
[2021-06-01] MEDS: DIVALPROEX DELAYED RELEASE 250 MG TABLET.DR. PO SCH ×2 (08:21→22:37)
[2021-06-01] MEDS: CARVEDILOL 12.5 MG TABLET. PO SCH ×2 (08:22→17:00)
[2021-06-01] MEDS: POLYETHYLENE GLYCOL 3350 17 GM PACKET. PO SCH (08:22)
[2021-06-01] MEDS: SENNOSIDES/DOCUSATE 8.6/50MG TABLET. PO SCH (08:28)
[2021-06-01 11:00] VITALS: BP 83/48
--- NOTE | 2021-06-01 11:53 | PN ---
DATE: 06/01/2021 SUBJECTIVE: The patient is resting, slightly propped up in bed, sleepy. Apparently, she was given pain medication this morning. The nursing staff stated that she was more awake and she gave her medications that she did not know how to deal with them and chew them and she had also some of her breakfast, although her intake is poor. PHYSICAL EXAMINATION: GENERAL: When I examined her, she was pale, not jaundiced, cyanosed. No lymphadenopathy, no thyromegaly, no jugular venous distention. No limb edema. VITAL SIGNS: Her heart rate was 72, blood pressure 100/58, temperature was 98.1, respiratory rate was 18 and oxygen saturation was 97% on 2 liters of oxygen. HEAD, EYES, EARS, NOSE, AND THROAT: Normocephalic, atraumatic. NECK: Supple. HEART: Showed normal first and second heart sounds. No gallop or murmur. CHEST: Clear to auscultation, no crepitation or rhonchi. ABDOMEN: Distended, soft, nontender. NEUROLOGIC: She is demented and sedated. All her cranial nerves intact. She moves upper extremities without difficulty. Her intake is 1100, output was 700. LABORATORY DATA: As of yesterday, her serum sodium 141, potassium 3.7, chloride 108, bicarbonate 25, anion gap of 8, BUN 17, creatinine was 0.8. Estimated GFR was 70 mL per minute. Her glucose 149, calcium was 8.5, white cell count was 11,500, hemoglobin 10, hematocrit 30, MCV 95 and platelet count 230,000. ASSESSMENT: 1. The patient is a 70-year-old female patient who apparently fell at the [facility] at [facility], sustaining a right intertrochanteric hip fracture. She was on Eliquis and therefore, the surgical intervention was postponed until Sunday morning. 2. She underwent open reduction and internal fixation of her right intertrochanteric fracture successfully. 3. The patient has multiple other medical problems including: A. Hypertension. B. Type 2 diabetes mellitus. C. Coronary artery disease. D. Cerebrovascular accident. E. Atrial fibrillation, rate controlled. F. Chronic kidney disease. G. Aphasia. H. Profound dementia. PLAN: To continue with pain management. Continue with DVT prophylaxis. Continue with physical and occupational therapy. I think we need to talk to the family as she has profound dementia and I am not sure that she can be a candidate for rehabilitation. She might be better off on hospice. STEFANI/ANTHONY DR: Salvador TID: [id number]
[2021-06-01 15:00] VITALS: BP 90/55
[2021-06-01 19:00] VITALS: BP 95/54
--- NOTE | 2021-06-01 19:27 | PN ---
DATE: 06/01/2021 She is postoperative day #2 for an ORIF with gamma nail fixation of her right hip. She is resting very comfortably today with no signs or symptoms of infection. No active drainage from the wound at this point. No other issues, problems or concerns at this point. She is orthopedically stable. KALE DR: Gab TID: [id number]
[2021-06-01] MEDS: ATORVASTATIN CALCIUM 40 MG TABLET. PO SCH (22:37)
[2021-06-01 23:00] VITALS: BP 108/60
[2021-06-02] MEDS: IV NORMAL SALINE 1000ML BAG 1,000 ML IV SCH ×3 (01:31→20:32)
[2021-06-02 03:00] VITALS: BP 114/74
[2021-06-02] MEDS: LEVOTHYROXINE 75 MCG TABLET PO SCH (06:07)
[2021-06-02 07:00] VITALS: BP 126/67
[2021-06-02] MEDS: SENNOSIDES/DOCUSATE 8.6/50MG TABLET. PO SCH (08:54)
[2021-06-02] MEDS: POLYETHYLENE GLYCOL 3350 17 GM PACKET. PO SCH (08:54)
[2021-06-02] MEDS: MAGNESIUM OXIDE 400 MG TABLET PO SCH ×2 (08:55→20:31)
[2021-06-02] MEDS: DIVALPROEX DELAYED RELEASE 250 MG TABLET.DR. PO SCH ×2 (08:55→20:31)
[2021-06-02] MEDS: MULTIVITAMIN with MINERAL TABLET. PO SCH (08:55)
[2021-06-02] MEDS: ASPIRIN 325 MG TABLET PO SCH (08:55)
[2021-06-02] MEDS: CARVEDILOL 12.5 MG TABLET. PO SCH ×2 (08:55→17:00)
[2021-06-02] MEDS: CITALOPRAM 20 MG TABLET. PO SCH (08:56)
[2021-06-02 11:00] VITALS: BP 110/71
--- NOTE | 2021-06-02 13:29 | PN ---
DATE: 06/02/2021 SUBJECTIVE: The patient is resting slightly propped up in bed, in no apparent distress. She continued to be extremely demented and confused, does not give any useful information. She is unable to participate in physical therapy. PHYSICAL EXAMINATION: GENERAL: When I examined her, she was pale, but not jaundiced, cyanosed. No lymphadenopathy. No thyromegaly. No jugular venous distention. No limb edema. VITAL SIGNS: Her heart rate was 80, blood pressure was 126/67, temperature 97.5, respiratory rate was 17 and oxygen saturation was 97%. HEAD, EYES, EARS, NOSE, AND THROAT: Normocephalic and atraumatic. NECK: Supple. HEART: Normal first and second heart sounds. No gallop or murmur. CHEST: Clear to auscultation. No crepitation or rhonchi. ABDOMEN: Slightly distended, soft, nontender. NEUROLOGIC: She is extremely demented without any obvious lateralizing sign. All her cranial nerves are intact. She moves her extremities without difficulty, although she is mostly bedbound. She is status post open reduction and internal fixation with gamma nail fixation of the right intertrochanteric fracture. LABORATORY DATA: Her most recent lab work shows white cell count of 11,500, hemoglobin 10, hematocrit 30, MCV 95 and platelet count 230,000. Her chemistry showed a serum sodium 141, potassium 3.7, chloride 108, bicarbonate 25, anion gap of 8, BUN 17, creatinine 0.8. Estimated GFR was 70 mL per minute. Her glucose 149, calcium was 8.5. ASSESSMENT: 1. The patient is a 70-year-old female patient who apparently fell [facility], sustaining a right intertrochanteric hip fracture. She was on Eliquis and therefore her surgical procedure was postponed until Sunday. 2. The patient underwent open reduction and internal fixation of her right intertrochanteric fracture successfully. 3. The patient has multiple other medical problems including: A. Hypertension. B. Type 2 diabetes mellitus. C. Coronary artery disease. D. Cerebrovascular accident. E. Atrial fibrillation, rate controlled. F. Chronic kidney disease. G. Aphasia. H. Profound dementia. PLAN: My plan is to continue with pain management. Continue with DVT prophylaxis. Continue with physical and occupational therapy. We will eventually probably transfer her back to group home facility at the [place] hopefully tomorrow or Sunday. ARISTIDES DR: Salvador TID: [id number]
[2021-06-02 15:00] VITALS: BP 121/63
[2021-06-02 19:00] VITALS: BP 140/86
[2021-06-02] MEDS: ATORVASTATIN CALCIUM 40 MG TABLET. PO SCH (20:31)
[2021-06-02 23:00] VITALS: BP 130/87
[2021-06-03 03:00] VITALS: BP 119/71
[2021-06-03] MEDS: LEVOTHYROXINE 75 MCG TABLET PO SCH (05:47)
[2021-06-03] MEDS: IV NORMAL SALINE 1000ML BAG 1,000 ML IV SCH ×2 (05:47→15:30)
[2021-06-03 07:00] VITALS: BP 120/89
[2021-06-03] MEDS: SENNOSIDES/DOCUSATE 8.6/50MG TABLET. PO SCH (09:39)
[2021-06-03] MEDS: POLYETHYLENE GLYCOL 3350 17 GM PACKET. PO SCH (09:39)
[2021-06-03] MEDS: MAGNESIUM OXIDE 400 MG TABLET PO SCH ×2 (09:39→21:59)
[2021-06-03] MEDS: CITALOPRAM 20 MG TABLET. PO SCH (09:39)
[2021-06-03] MEDS: MULTIVITAMIN with MINERAL TABLET. PO SCH (09:39)
[2021-06-03] MEDS: ASPIRIN 325 MG TABLET PO SCH (09:39)
[2021-06-03] MEDS: DIVALPROEX DELAYED RELEASE 250 MG TABLET.DR. PO SCH ×2 (09:40→21:53)
[2021-06-03] MEDS: CARVEDILOL 12.5 MG TABLET. PO SCH ×2 (09:40→17:00)
[2021-06-03 11:00] VITALS: BP 141/60
--- NOTE | 2021-06-03 12:29 | SNU/HH DC ---
DISCHARGE ORDERS DISCHARGE INFORMATION: DISCHARGE DATE: Jun 03, 2021 FINAL DIAGNOSIS Profound dementia right hip fracture s/p ORIF CODE STATUS: Code Status: DNR/DNI HOSPICE: HOSPICE: Yes HOSPICE EVAL & TREAT: Yes POST DISCHARGE ORDERS: DIET AFTER DISCHARGE: DISCHARGE MEDICATIONS: Home Meds Discontinued Reported Medications Apixaban (ELIQUIS) 5 Mg Tablet, 5 MG PO BID for afib, TAB 05/27/21 Divalproex Sodium (DIVALPROEX SODIUM) 250 Mg Tablet.dr, 250 MG PO BID for mood, TAB 05/27/21 Lorazepam (ATIVAN) 0.5 Mg Tablet, 0.5 MG PO PRN Q6HRS PRN for ANXIETY / AGITATION, TAB 05/27/21 Multivitamin (MULTI VITAMIN DAILY) 1 Each Tablet, 1 TAB PO DAILY for supplement for 30 Days, #30 TAB 0 Refills 05/27/21 Polyethylene Glycol 3350 (POLYETHYLENE GLYCOL 3350) 2,500 Gm Powder, 17 GM PO DAILY for constipation, #255 GM 0 Refills 05/27/21 Melatonin (MELATONIN) 5 Mg Tab.rapdis, 1 TAB PO QHS for sleep for 30 Days, #30 TAB 0 Refills 05/27/21 Magnesium Oxide (MAGNESIUM OXIDE) 400 Mg Tablet, 1 TAB PO BID for supp, #60 TAB 5 Refills 05/27/21 Escitalopram Oxalate (ESCITALOPRAM OXALATE) 20 Mg Tablet, 20 MG PO DAILY for ANTI-DEPRESSANT, TAB 0 Refills 05/27/21 Levothyroxine Sodium (LEVOTHYROXINE SODIUM) 75 Mcg Tablet, 1 TAB PO DAILY for thyroidism, #30 TAB 5 Refills 05/27/21 Diltiazem Hcl (DILTIAZEM 24HR CD) 180 Mg Cap.er.24h, 1 CAP PO DAILY for bp for 30 Days, #30 CAP 0 Refills 05/27/21 Carvedilol (CARVEDILOL ) 12.5 Mg Tablet, 12.5 MG PO BIDWMEALS for CARDIAC, TAB 05/27/21 Bisacodyl (DULCOLAX) 5 Mg Tablet.dr, 5 MG PO PRN DAILY PRN for CONSTIPATION, TAB 0 Refills 05/27/21 Atorvastatin Calcium (ATORVASTATIN CALCIUM) 40 Mg Tablet, 1 TAB PO QHS for hld, #90 TAB 3 Refills 05/27/21 MARIIA ABERNATHY MD Jun 03, 2021 12:28
--- NOTE | 2021-06-03 13:16 | PN ---
DATE: 06/03/2021 SUBJECTIVE: The patient is resting, slightly propped up in bed, in no apparent distress. She is profoundly demented. She has apraxia. She does not know even what to do with her medications or food and therefore, I contacted the healthcare social worker and asked her to talk to the family as I do not think she will be a candidate to participate for physical and occupational therapy and she will not be rehabbed given her profound dementia. PHYSICAL EXAMINATION: GENERAL: When I examined her today, she looked well and was clearly in no apparent respiratory distress, pale, but not jaundiced or cyanosed. No lymphadenopathy, no thyromegaly, no jugular venous distention. No limb edema. VITAL SIGNS: Her heart rate was 66, blood pressure was 141/60, temperature was 98.6, respiratory rate was 20 and oxygen saturation was 97% on 2 liters of oxygen. The rest of clinical exam is stable. ASSESSMENT: 1. Fall with resultant right intertrochanteric hip fracture, status post open reduction and internal fixation. 2. The patient has multiple other medical problems including: A. Hypertension. B. Type 2 diabetes mellitus. C. Coronary artery disease. D. Cerebrovascular accident. E. Atrial fibrillation, rate controlled. F. Chronic kidney disease. G. Aphasia. H. Profound dementia. PLAN: To continue with current plan of management. I spoke with the healthcare social worker to consider hospice care. RADHA DR: Salvador TID: [id number]
[2021-06-03 15:00] VITALS: BP 100/65
[2021-06-03 19:00] VITALS: BP 136/72
[2021-06-03] MEDS: ATORVASTATIN CALCIUM 40 MG TABLET. PO SCH (21:59)
[2021-06-03 23:07] VITALS: BP 138/84
[2021-06-04 03:10] VITALS: BP 135/91
[2021-06-04] MEDS: LEVOTHYROXINE 75 MCG TABLET PO SCH (05:59)
[2021-06-04 07:00] VITALS: BP 148/76
[2021-06-04] MEDS: POLYETHYLENE GLYCOL 3350 17 GM PACKET. PO SCH (09:00)
[2021-06-04] MEDS: MAGNESIUM OXIDE 400 MG TABLET PO SCH (09:00)
[2021-06-04] MEDS: SENNOSIDES/DOCUSATE 8.6/50MG TABLET. PO SCH (09:01)
[2021-06-04] MEDS: ASPIRIN 325 MG TABLET PO SCH (09:01)
[2021-06-04] MEDS: MULTIVITAMIN with MINERAL TABLET. PO SCH (09:01)
[2021-06-04] MEDS: CITALOPRAM 20 MG TABLET. PO SCH (09:01)
[2021-06-04] MEDS: CARVEDILOL 12.5 MG TABLET. PO SCH (09:01)
[2021-06-04] MEDS: DIVALPROEX DELAYED RELEASE 250 MG TABLET.DR. PO SCH (09:02)
--- NOTE | 2021-06-04 10:04 | DS ---
DATE OF DISCHARGE: 06/04/2021 HOSPITAL COURSE: The patient is a 70-year-old female patient who apparently was residing at [facility]. She was admitted originally to [facility] for inpatient psychiatric stabilization. Unfortunately, she fell sustaining right intertrochanteric hip fracture and therefore, the patient was transferred to [facility]. She was seen by the orthopedic surgeon and underwent open reduction and internal fixation with gamma nail fixation of the right hip. Postoperatively, the patient continued to do poorly. She has profound dementia and has been unable to participate with physical therapy and we have discussion with the family regarding the goals of care and her son apparently agreed to discharge her to [facility] on hospice. PHYSICAL EXAMINATION: GENERAL: When I saw her today, she was resting slightly propped up in bed, in no apparent respiratory distress. She was pale, but not jaundiced or cyanosed, no lymphadenopathy, no thyromegaly, no jugular venous distention. No lower limb edema. VITAL SIGNS: Her heart rate was 100, blood pressure is 148/76, temperature was 97.7, respiratory rate 20, and oxygen saturation was 95%. HEAD, EYES, EARS, NOSE, AND THROAT: Normocephalic, atraumatic. NECK: Supple. HEART: Showed normal first and second heart sounds. No gallop, rub, or murmur. CHEST: Shows central trachea, equal bilateral expansion, air entry, vesicular breath sounds. No crepitation or rhonchi. ABDOMEN: Distended, soft, nontender. NEUROLOGIC: She is profoundly demented, but without any obvious lateralizing sign. DISCHARGE MEDICATIONS: The patient will be discharged to [facility] on hospice for comfort and end of life care. FINAL DISCHARGE DIAGNOSES: 1. Fall with resultant right intertrochanteric hip fracture, status post open reduction and internal fixation. 2. The patient has multiple other medical problems including: A. Hypertension. B. Type 2 diabetes mellitus. C. Coronary artery disease. D. Cerebrovascular accident. E. Atrial fibrillation. F. Chronic kidney disease. G. Aphasia. H. Profound dementia and marked apraxia. STEFANI/KATERYNA DR: Salvador TID: [id number]
[2021-06-04 11:06] VITALS: BP 127/47
== END 2021-06-04 11:35 | disposition hospice, inpatient (51) | DRG 480 ==
LOC: 5 NORTH 00:44
PROVIDERS: ADMIT Internal Medicine; ATTEND Internal Medicine
PROC: 0QS604Z Reposition Right Upper Femur with Internal Fixation Device, Open Approach (ICD-10-PCS; principal; 2021-05-30 12:30)
DX: S72.141A Displaced intertrochanteric fracture of right femur, initial encounter for closed fracture (principal); N17.0 Acute kidney failure with tubular necrosis; F03.91 Unspecified dementia, unspecified severity, with behavioral disturbance; R47.01 Aphasia; E11.22 Type 2 diabetes mellitus with diabetic chronic kidney disease; I12.9 Hypertensive chronic kidney disease with stage 1 through stage 4 chronic kidney disease, or unspecified chronic kidney disease; I25.10 Atherosclerotic heart disease of native coronary artery without angina pectoris; I48.91 Unspecified atrial fibrillation; N18.9 Chronic kidney disease, unspecified; Z86.73 Personal history of transient ischemic attack (TIA), and cerebral infarction without residual deficits; Z20.822 Contact with and (suspected) exposure to COVID-19; W18.39XA Other fall on same level, initial encounter; Y93.89 Activity, other specified; Y92.89 Other specified places as the place of occurrence of the external cause; Y99.8 Other external cause status
CPT/HCPCS: 36415; 76000; 80048; 80053; 85025; 85027; 85610; 85730; 87426; 99292; A4213; A4222; A4223; A4930; A6223; A6253; A6402; C1713; C1769; J0690; J1100; J2250; J2270; J2370; J2405; J2704; J3010; J3490; J7030; J7120; U0003; 97530-GO; 97530-GP; 99291-25; G0378